=== PATIENT | female | born 1985 | race Caucasian/White ===

== ENCOUNTER 2018-03-30 20:46 | Emergency (ER) | payer OTHER ==
--- NOTE | 2018-03-30 20:56 | PDOC ---
Attending Attestation - HPI HPI: 03/30/18 22:17 The patient is a 39 weeks 32 year old female , with no significant PMH, who presents to the emergency department with 3 days of bilateral hand swelling. The patient denies any recent injuries or traumas. Denies any pain. The patient states she has experienced intermittent bilateral lower extremity swelling in previous pregnancies but has not experienced the hand swelling in the past. The patient denies chest pain, shortness of breath, headache and dizziness. Denies fever, chills, nausea, vomit, diarrhea and constipation. Denies dysuria, frequency, urgency and hematuria. Allergies: NKDA Documentation prepared by Angelo Qiu, acting as medical reception for Nano Hopper MD. - Physicial Exam PE: 03/30/18 22:17 GENERAL: Awake, alert, and fully oriented, in no acute distress HEAD: No signs of trauma EYES: PERRLA, EOMI, sclera anicteric, conjunctiva clear ENT: Auricles normal inspection, hearing grossly normal, nares patent, oropharynx clear without exudates. Moist mucosa NECK: Normal ROM, supple, no lymphadenopathy, JVD, or masses LUNGS: Breath sounds equal, clear to auscultation bilaterally. No wheezes, and no crackles HEART: Regular rate and rhythm, normal S1 and S2, no murmurs, rubs or gallops ABDOMEN: Gravid but non tender. Soft, normoactive bowel sounds. No guarding, no rebound. EXTREMITIES: (+) Mild swelling of both hands. No pain with flexion or extension. No pitting edema. Normal range of motion. No clubbing or cyanosis. No cords, erythema, or tenderness NEUROLOGICAL: Cranial nerves II through XII grossly intact. Normal speech, normal gait SKIN: Warm, Dry, normal turgor, no rashes or lesions noted. <Angelo Qiu - Last Filed: 03/30/18 22:20> - Resident Resident Name: David Frances - ED Attending Attestation I have performed the following: I have examined & evaluated the patient, The case was reviewed & discussed with the resident, I agree w/resident's findings & plan - Medical Decision Making 03/30/18 22:01 Pt is 39 weeks with bilateral hand swelling; she has had this for a couple days. The swelling would go away on prior days. Today she has persistence of the hand swelling. 03/30/18 22:54 Pt's labs are normal. Duplex sono of her arms bilaterally are pending. 03/30/18 22:56 Pt will be sent upstairs to L+D for monitoring prior to discharge. 03/31/18 04:38 Sono shows no DVTs <Nano Hopper - Last Filed: 03/31/18 04:38>
--- NOTE | 2018-03-30 21:15 | PDOC ---
History of Present Illness - General Chief Complaint: Edema Stated Complaint: 39 WEEKS - HAND SWELLING Time Seen by Provider: 03/30/18 20:55 - History of Present Illness Initial Comments: The patient is a 32F at 39 weeks who presents for evaluation of three days of b/l hand swelling. The patient reports that the first two days she awoke with mild b/l hand swelling which resolved throughout the day. Today the swelling has persisted. She noted that today her hands were on average less elevated than they may have the over the last two days. She denies recent trauma /injury to her hands. Denies changes in sensation or pain. Reports intermittent BLE swelling throughout all of her pregnancies but had not has hand swelling during her previous pregnancies. Denies fevers/chills, recent illness, BRAND, chest pain, SOB, abdominal pain, dysuria, vaginal bleeding or discharge, or N/V/C/D 03/30/18 21:10 Past History - Past Medical History Allergies/Adverse Reactions: Allergies Allergy/AdvReac Type Severity Reaction Status Date / Time No Known Drug Allergies Allergy Verified 03/30/18 20:56 tomato AdvReac Verified 03/30/18 20:56 Home Medications: Ambulatory Orders Acetaminophen [Tylenol] 650 mg PO PRN 03/30/18 Ferrous Sulfate 325 mg PO BID 03/31/18 Vitamins (Sjr) - 1 tab PO DAILY 03/31/18 Asthma: No Cancer: No Cardiac Disorders: No Diabetes: No HTN: No Seizures: No Thyroid Disease: No - Suicide/Smoking/Psychosocial Hx Smoking History: Never smoked Have you smoked in the past 12 months: No Number of Cigarettes Smoked Daily: 0 Cigars Per Day: 0 Information on smoking cessation initiated: No Hx Alcohol Use: No Drug/Substance Use Hx: No Hx Substance Use Treatment: No Review of Systems - Review of Systems Able to Perform ROS?: Yes Comments:: GENERAL/CONSTITUTIONAL: No fever or chills. No weakness HEAD, EYES, EARS, NOSE AND THROAT: No change in vision. No ear pain or discharge. No sore throat CARDIOVASCULAR: No chest pain or shortness of breath RESPIRATORY: Denies cough, hemoptysis GASTROINTESTINAL: No nausea, vomiting, diarrhea or constipation GENITOURINARY: No dysuria, or change in urination MUSCULOSKELETAL: No joint or muscle pain. No neck or back pain SKIN: No rash NEUROLOGIC: No headache, vertigo, loss of consciousness, or change in strength/ sensation ENDOCRINE: No increased thirst. No abnormal weight change HEMATOLOGIC/LYMPHATIC: No anemia, easy bleeding, or history of blood clots ALLERGIC/IMMUNOLOGIC: No hives or skin allergy 03/30/18 21:13 Is the patient limited Egyptian proficient: No *Physical Exam - Vital Signs Last Vital Signs Temp Pulse Resp BP Pulse Ox 97.9 F 118 H 18 114/79 99 03/30/18 20:56 03/30/18 20:56 03/30/18 20:56 03/30/18 20:56 03/30/18 20:56 - Physical Exam Comments: GENERAL: Awake, alert, and fully oriented, in no acute distress HEAD: No signs of trauma, normocephalic, atraumatic EYES: PERRLA, EOMI, sclera anicteric, conjunctiva clear ENT: Hearing grossly normal, nares patent, oropharynx clear without exudates. Moist mucosa LUNGS: No distress, speaks full sentences, clear to auscultation bilaterally HEART: Regular rate and rhythm, normal S1 and S2, no murmurs appreciated, peripheral pulses normal and equal bilaterally ABDOMEN: Gravid, nontender, normoactive bowel sounds. No guarding, no rebound EXTREMITIES : Normal inspection, Normal range of motion, no edema. No clubbing or cyanosis NEUROLOGICAL: Cranial nerves II through XII grossly intact. Normal speech, normal gait, no focal sensorimotor deficits SKIN: Warm, Dry, normal turgor, no rashes or lesions noted RUE: Inspection: Mild diffuse swelling of the palm and digits w/o pitting edema. No erythema or ecchymosis. No tenderness or open wounds. Compartments soft and compressible, pain within proportion, no pain to passive stretch Sensation: sensation present to light touch m/r/u n Motor: intact AIN/PIN/Ulnar in hand; 5/5 Wrist flex/ext; 5/5 Elbow flex/ext; 5/ 5 Shoulder ABd,Flex Vascular: 2+ radial pulse palpated, BCR all fingers <2 sec. LUE: Inspection: Mild diffuse swelling of the palm and digits w/o pitting edema. No erythema or ecchymosis. No tenderness or open wounds. Compartments soft and compressible, pain within proportion, no pain to passive stretch Sensation: sensation present to light touch m/r/u n Motor: intact AIN/PIN/Ulnar in hand; 5/5 Wrist flex/ext; 5/5 Elbow flex/ext; 5/ 5 Shoulder ABd,Flex Vascular: 2+ radial pulse palpated, BCR all fingers <2 sec. 03/30/18 21:14 Moderate Sedation - Procedure Monitoring Vital Signs: Procedure Monitoring Vital Signs Temperature 97.9 F 03/30/18 20:56 Pulse Rate 118 H 03/30/18 20:56 Respiratory Rate 18 03/30/18 20:56 Blood Pressure 114/79 03/30/18 20:56 O2 Sat by Pulse Oximetry (%) 99 03/30/18 20:56 ED Treatment Course - LABORATORY CBC & Chemistry Diagram: 03/30/18 22:10 03/30/18 22:10 Medical Decision Making - Medical Decision Making The patient is a 32F at 39 weeks who presents for evaluation Ddx: physiologic swelling, considered DVT, infection, trauma/injury ED Course CMP, CBC BUE doppler 03/30/18 22:00 No leukocytosis Plt wnl No anemia Lytes wnl Alk P mildly elevated to 122 LFTs wnl No SHELTON S/p US, pending read 03/30/18 22:49 US w/o evidence of DVT Likely physiological swelling Plan for D/C w/ OB check, and pt to call for OB f/u Sunday Discharge instructions and return precautions given Patient in agreement and verbalized understanding Dispo: home *DC/Admit/Observation/Transfer Diagnosis at time of Disposition: Hand swelling Qualifiers: Laterality: bilateral Qualified Code(s): M79.89 - Other specified soft tissue disorders - Discharge Dispostion Disposition: HOME Condition at time of disposition: Stable Decision to Admit order: No - Referrals - Patient Instructions - Post Discharge Activity
[2018-03-30 22:17] LABS: HEMATOCRIT 32.2 % (32.4-45.2); HEMOGLOBIN 11.3 GM/dL (10.7-15.3); MCH 31.1 pg (25.7-33.7); MCHC 35.1 g/dl (32.0-36.0); MEAN CELL VOLUME 88.6 fl (80-96); MEAN PLT VOLUME 8.4 fl (7.5-11.1); PLATELET COUNT 220 K/MM3 (134-434); RBC 3.63 M/mm3 (3.60-5.2); RDW 15.6 % (11.6-15.6); WHITE BLOOD COUNT 6.8 K/mm3 (4.0-10.0)
[2018-03-30 22:44] LABS: ALBUMIN 2.8 g/dl (3.4-5.0); ALK PHOS 122 U/L (45-117); ANION GAP 7 MMOL/L (8-16); BILIRUBIN,TOTAL 0.6 mg/dL (0.2-1); BLOOD UREA NITROGEN 9 mg/dL (7-18); CALCIUM 8.3 mg/dL (8.5-10.1); CHLORIDE 106 mmol/L (98-107); CO2 22 mmol/L (21-32); CREATININE 0.5 mg/dL (0.55-1.3); GLUCOSE,RANDOM 103 mg/dL (74-106); POTASSIUM 3.8 mmol/L (3.5-5.1); SGOT/AST 16 U/L (15-37); SGPT/ALT 16 U/L (13-61); SODIUM 136 mmol/L (136-145); TOT PROT 6.3 g/dl (6.4-8.2)
[2018-03-31] MEDS ORDERED: SODIUM PHOSPHATE/NA BIPHOS 133 ML ENEMA PR ONE (01:55)
[2018-03-31] MEDS ORDERED: DEXTROSE 5%-LACTATED RINGERS 1,000 ML IV SCH (02:00)
--- NOTE | 2018-03-31 02:04 | HP ---
Past Medical History - Primary Care Physician PCP:: Michelle Mitchell - Admission Chief Complaint: 32 yrs , 39.3 weeks iup admitted in labor onset since mid night History of Present Illness: pnc at 2, [facility] wt gain 29 lbs 10/22/17 Panel : O Pos, Hbsag neg, Rpr nr, Rubella non immune, Vaicella immune, Hiv neg, Lead neg, Pap Nilm, hpc gc/ct neg 12/26/17 1 hr Gtt 88, rpr nr, Quantiferon neg 03/05/18 h/h 10.131.1, plt 228, GBS neg, gc/ct neg genetic counselling was done, Materna T-21 neg, growth sono done by [facility] ,anatomy sono were normal sono rports not available 11/16/17 sono 20.1 weeks , corrected EDC assigned 04/04/18 History Source: Patient, Medical Record Limitations to Obtaining History: No Limitations - Past Medical History 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 Weeks Gestation by Dates: 37.0 ...EDC by Dates: 04/20/18 (mistaken dates ) ...EDC by Sono: 04/04/18 (corrected EDC by sono ) Heme/Onc: Yes: Anemia (Rx po iron , pnv) Infectious Disease: No: AIDS, HIV, STD's, Tuberculosis Psych: No: Addictions, Anxiety, Bipolar, Depression, Panic, Psychosis, Schizophrenia, Other - Past Surgical History Past Surgical History: Yes: None Hx Myomectomy: No Hx Transabdominal Cerclage: No - Smoking History Smoking history: Never smoked Have you smoked in the past 12 months: No Aproximately how many cigarettes per day: 0 - Alcohol/Substance Use Hx Alcohol Use: No History of Substance Use: reports: None Home Medications - Allergies Allergies/Adverse Reactions: Allergies Allergy/AdvReac Type Severity Reaction Status Date / Time No Known Drug Allergies Allergy Verified 03/30/18 20:56 tomato AdvReac Verified 03/30/18 20:56 - Home Medications Home Medications: Ambulatory Orders Acetaminophen [Tylenol] 650 mg PO PRN 03/30/18 Ferrous Sulfate 325 mg PO BID 03/31/18 Vitamins (Sjr) - 1 tab PO DAILY 03/31/18 Physical Exam - Maternity Vital Signs: Vital Signs Temperature 98.2 F 03/30/18 23:42 Pulse Rate 80 03/30/18 23:42 Respiratory Rate 18 03/30/18 23:42 Blood Pressure 106/63 03/30/18 23:42 O2 Sat by Pulse Oximetry (%) 100 03/30/18 23:24 Selected Entries 03/30/18 20:56 Weight 179 lb Constitutional: Yes: Well Nourished, No Distress Eyes: Yes: WNL HENT: Yes: WNL, Normocephalic Neck: Yes: WNL Cardiovascular: Yes: WNL, Regular Rate and Rhythm Lungs: Clear to auscultation Breast(s): Yes: WNL - Abdominal Exam/OB Fundal Height: 38 Number of Fetuses: Single Presentation: Vertex Contractions: Yes Regularity: Irregular (3-5 min) Intensity: Mild Monitor Mode: External Heart Rate (range): 150 Heart Rate Location: [facility] Category: I Accelerations: Uniform Decelerations: None - Vaginal Exam/OB Vaginal Bleediing: No Speculum Exam: No Dilatation (cm): 3-4 Effacement (%): 70 Amniotic Membrane Status: Intact Presentation: Vertex/Position (exam at 1.00 AM) Station: -2 - Physical Exam Musculoskeletal: Yes: WNL Extremities: Yes: WNL. No: Calf Tenderness Edema: LUE: Trace (edema of hand), RUE: Trace (edema of hand ), LLE: 1+, RLE: 1+ Integumentary: Yes: WNL Deep Tendon Reflex Grade: Normal +2 ...Motor Strength: WNL Psychiatric: Yes: WNL, Alert, Oriented - Labs Lab Results: CBC, BMP 03/30/18 22:10 03/30/18 22:10 Laboratory Tests 03/30/18 22:10 AST 16 ALT 16 Laboratory Tests 03/31/18 03/31/18 03/31/18 01:45 01:45 01:45 WBC 6.8 Hgb 12.0 Hct 34.7 Plt Count 226 PT with INR 11.00 INR 0.93 PTT (Actin FS) 30.6 Sodium 137 Potassium 3.9 Chloride 103 Carbon Dioxide 26 BUN 8 Creatinine 0.5 L Random Glucose 83 Calcium 8.6 Blood Type Antibody Screen 03/31/18 01:45 WBC Hgb Hct Plt Count PT with INR INR PTT (Actin FS) Sodium Potassium Chloride Carbon Dioxide BUN Creatinine Random Glucose Calcium Blood Type O POSITIVE Antibody Screen Negative Problem List - Problems (1) with 39 completed weeks gestation Code(s): Z3A.39 - 39 WEEKS GESTATION OF (2) Labor established Code(s): [id number] - Assessment/Plan 32 yrs , 39.3/7 weeks gestation ,GBS neg admitted in labor ( early) Plan may ambulate pitocin augmentation prn epidural labor analgesia trial vaginal delivery 7.30 AM cx 3-4 cm/70 %/ mi/ vx -3/-2 /pelvis adequate UC are irregular 3-7 min , mild . 9.15 am pt declines to continue observation or active management of labor she states she is comfortable , she prefers to go home labor s&s told keep clinic appt keep kick count Discharge the patient
[2018-03-31 02:13] VITALS: BMI 24.7
[2018-03-31 02:19] LABS: BASO % 0.5 % (0-2.0); EOS % 2.1 % (0-4.5); HEMATOCRIT 34.7 % (32.4-45.2); LYMPH % 20.9 % (8-40); MCHC 34.5 g/dl (32.0-36.0); MEAN CELL VOLUME 89.9 fl (80-96); MEAN PLT VOLUME 8.9 fl (7.5-11.1); MONO % 7.9 % (3.8-10.2); NEUT % 68.6 % (42.8-82.8); PLATELET COUNT 226 K/MM3 (134-434); RBC 3.86 M/mm3 (3.60-5.2); RDW 15.7 % (11.6-15.6); WHITE BLOOD COUNT 6.8 K/mm3 (4.0-10.0)
[2018-03-31 02:31] LABS: INR 0.93 (0.83-1.09)
[2018-03-31 02:33] LABS: ACTIVATED PTT 30.6 SECONDS (25.2-36.5)
[2018-03-31 02:38] LABS: ANION GAP 8 MMOL/L (8-16); BLOOD UREA NITROGEN 8 mg/dL (7-18); CALCIUM 8.6 mg/dL (8.5-10.1); CHLORIDE 103 mmol/L (98-107); CO2 26 mmol/L (21-32); CREATININE 0.5 mg/dL (0.55-1.3); GLUCOSE,RANDOM 83 mg/dL (74-106); POTASSIUM 3.9 mmol/L (3.5-5.1); SODIUM 137 mmol/L (136-145)
[2018-03-31 09:30] VITALS: BP 111/61; PULSE 79; TEMP 98
== END 2018-03-31 09:42 | disposition home or self-care (01) ==
LOC: JER 20:46 → UNDOADMIN 03-31 01:00 → JLDR 03-31 01:00 → JER 03-31 09:42
PROC: 3E033GC Introduction of Other Therapeutic Substance into Peripheral Vein, Percutaneous Approach (ICD-10-PCS; principal; 2018-03-30)
DX: M79.89 Other specified soft tissue disorders (principal)
CPT/HCPCS: 36415; 80048; 80053; 85025; 85027; 85610; 85730; 86593; 86850; 86900; 86901; 93970-TC; 99284-25

== ENCOUNTER 2018-04-01 05:45 | Inpatient (IN) | payer OTHER ==
[2018-04-01] MEDS ORDERED: ELECTROLYTE-148 SOLN 500 ML IV ONE (06:53)
[2018-04-01] MEDS ORDERED: ELECTROLYTE-148 SOLN 1,000 ML IV SCH (07:00)
--- NOTE | 2018-04-01 07:07 | HP ---
Past Medical History - Primary Care Physician PCP:: Michelle Mitchell - Admission Chief Complaint: 32 yrs , 39.4/7 weeks admitted in labor, onset LP since 4.30 AM . pt was admitted 03/31/18 , she left because uc had becvome infrequent& she did not want any intervention . History of Present Illness: pnc at [address] [place] [address] . see details of chart review on 03/31/18 admission. 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 Weeks Gestation by Dates: 37.2 (mistaken dates ) ...EDC by Dates: 04/20/18 ...EDC by Sono: 04/04/18 Heme/Onc: Yes: Anemia (Rx po iron , pnv) Infectious Disease: No: AIDS, HIV, STD's, Tuberculosis Psych: No: Addictions, Anxiety, Bipolar, Depression, Panic, Psychosis, Schizophrenia, Other Endocrine: No: Antrim's Disease, Yasemin's Disease, Diabetes Insipidus, Diabetes Mellitus, Hyperparathyroidism, Hyperthyroidism, Hypothyroidism, Osteopenia, SIADH, Other - Past Surgical History Past Surgical History: Yes: None Hx Myomectomy: No Hx Transabdominal Cerclage: No - Smoking History Smoking history: Never smoked Have you smoked in the past 12 months: No Aproximately how many cigarettes per day: 0 - Alcohol/Substance Use Hx Alcohol Use: No History of Substance Use: reports: None Home Medications - Allergies Allergies/Adverse Reactions: Allergies Allergy/AdvReac Type Severity Reaction Status Date / Time No Known Drug Allergies Allergy Verified 12/15/18 20:56 tomato AdvReac Verified 03/30/18 20:56 - Home Medications Home Medications: Ambulatory Orders Acetaminophen [Tylenol] 650 mg PO PRN 03/30/18 Ferrous Sulfate 325 mg PO BID 03/31/18 Vitamins (Sjr) - 1 tab PO DAILY 03/31/18 Physical Exam - Maternity Vital Signs: Selected Entries 04/01/18 07:00 Temperature 98.1 F Pulse Rate 80 Blood Pressure 106/67 Constitutional: Yes: Well Nourished Eyes: Yes: WNL HENT: Yes: WNL, Normocephalic Neck: Yes: WNL Cardiovascular: Yes: WNL, Regular Rate and Rhythm Lungs: Clear to auscultation Breast(s): Yes: WNL - Abdominal Exam/OB Fundal Height: 38 Number of Fetuses: Single Presentation: Vertex Contractions: Yes Regularity: Irregular (5-7 min) Intensity: Moderate Monitor Mode: External Heart Rate (range): 150 Heart Rate Location: [facility] Category: I Accelerations: Uniform Decelerations: None - Vaginal Exam/OB Vaginal Bleediing: Yes, Bloody Show Speculum Exam: No Dilatation (cm): 6-7 Effacement (%): 80 Amniotic Membrane Status: Intact Presentation: Vertex/Position (exam at 6.40 AM) Station: -2 (-2/-1) - Physical Exam Musculoskeletal: Yes: WNL Extremities: Yes: WNL. No: Calf Tenderness Edema: Yes Edema: LUE: 1+ (hand swelling ), RUE: 1+ (hand swelling ), LLE: 1+, RLE: 1+ Integumentary: Yes: WNL Deep Tendon Reflex Grade: Normal +2 ...Motor Strength: WNL Psychiatric: Yes: WNL, Alert, Oriented - Labs Lab Results: Laboratory Tests 03/30/18 03/31/18 03/31/18 22:10 01:45 01:45 WBC 6.8 Hgb 12.0 Hct 34.7 Plt Count 226 Neutrophils % 68.6 Lymphocytes % 20.9 D Monocytes % 7.9 Eosinophils % 2.1 Basophils % 0.5 PT with INR 11.00 INR 0.93 Sodium Potassium Chloride Carbon Dioxide BUN Creatinine Random Glucose AST 16 ALT 16 RPR Titer 03/31/18 03/31/18 01:45 01:45 WBC Hgb Hct Plt Count Neutrophils % Lymphocytes % Monocytes % Eosinophils % Basophils % PT with INR INR Sodium 137 Potassium 3.9 Chloride 103 Carbon Dioxide 26 BUN 8 Creatinine 0.5 L Random Glucose 83 AST ALT RPR Titer Nonreactive Problem List - Problems (1) 39 weeks gestation of Code(s): Z3A.39 - 39 WEEKS GESTATION OF (2) Labor established Code(s): [id number] - Assessment/Plan 32 yrs , 39.4/7 weeks , gbs neg , in labor Plan pt requests epidural labor analgesia trial vaginal delivery
[2018-04-01 07:25] VITALS: BMI 21.8
[2018-04-01] MEDS ORDERED: NALOXONE HCL 0.4 MG/ML VIAL IVPUSH PRN (07:39)
[2018-04-01] MEDS ORDERED: LIDO 2%/EPI 1:200000 PRESRVFRE (20 ML SDVIAL) ONE (07:40)
[2018-04-01] MEDS ORDERED: BUPIVACAINE HCL/PF 0.25% (2.5MG/ML) 10 ML VIAL ONE (07:40)
[2018-04-01] MEDS ORDERED: FENTANYL/BUPIVACAINE/NS/PF - PCEA - 50 ML DISP.SYRIN EP ONE (07:43)
[2018-04-01] MEDS ORDERED: FENTANYL/BUPIVACAINE/NS/PF - PCEA - 50 ML DISP.SYRIN EP SCH (07:45)
--- NOTE | 2018-04-01 08:51 | PN ---
Progress Note, Labor Vaginal Exam #1 Labor Exam Date: 04/01/18 Labor Exam Time: 08:40 Heart Rate (range): 140-150 Dilatation: 7-8 Amniotic Membrane Status: Ruptured (AROM scanty , blood tinged) Presentation: Vertex/Position Station: -2 (-2/-1) Remarks: fhr cat-1 uc 7-10 min irregular 8.00Am epidural given plan pItocin augmentation Selected Entries 04/01/18 08:30 Pulse Rate 77 Respiratory 20 Rate Blood Pressure 97/54 L O2 Sat by Pulse 77 L Oximetry (%) Vaginal Exam #2 Labor Exam Date: 04/01/18 Labor Exam Time: 11:30 Heart Rate (range): 130-110 Dilatation: 10 Effacement (%): 100 Amniotic Membrane Status: Ruptured Presentation: Vertex/Position Station: +2 Remarks: fhr cat-1 uc q2 min pt pushing
[2018-04-01] MEDS ORDERED: OXYTOCIN 20 UNITS in 0.9% NS 20 UNIT/1,000 ML INFUS.BAG IV ONE (08:57)
[2018-04-01] MEDS ORDERED: LIDOCAINE HCL 1% PRESERVATIVE FREE - 30ML VIAL ONE (08:58)
[2018-04-01] MEDS ORDERED: OXYTOCIN 30 UNITS in 0.9% NS 30 UNIT/500 ML INFUS.BAG IVPB SCH (09:00)
--- NOTE | 2018-04-01 12:01 | PN ---
Delivery - Delivery Vaginal Delivery: No Problems, Spontaneous (baby delievered in MARLON position, cord around neck x1 tight , was clammped & cut .immediate oral & nasal suction was done . both shoulders delievered without difficulty . 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
[2018-04-01] MEDS ORDERED: WITCH HAZEL 50% (TUCKS) 40 PAD/JAR PAD TP PRN (12:02)
[2018-04-01] MEDS ORDERED: METHYLERGONOVINE MALEATE 0.2 MG/1 ML AMP IM PRN (12:02)
[2018-04-01] MEDS ORDERED: oxyCODONE HCL 5 MG TABLET PO PRN (12:02)
[2018-04-01] MEDS ORDERED: BISACODYL 10 MG SUPP.RECT RC PRN (12:02)
[2018-04-01] MEDS ORDERED: BENZOCAINE 20% 57 GM BOTTLE TP PRN (12:02)
[2018-04-01] MEDS ORDERED: BENZOCAINE 28 GM HEMORRHOIDAL OINTMENT TP PRN (12:02)
[2018-04-01] MEDS ORDERED: OXYTOCIN 20 UNITS in 0.9% NS 20 UNIT/1,000 ML INFUS.BAG IV SCH (12:15)
[2018-04-01] MEDS: ACETAMINOPHEN 325 MG TABLET (FP) PO PRN ×2 (14:23→21:37)
[2018-04-01] MEDS: IBUPROFEN 600 MG TABLET (FP) PO PRN ×2 (14:24→21:36)
[2018-04-01] MEDS: FERROUS SO4 325 MG TABLET (FP) PO SCH (17:37)
[2018-04-02 07:24] LABS: BASO % 0.6 % (0-2.0); EOS % 1.6 % (0-4.5); HEMATOCRIT 32.4 % (32.4-45.2); HEMOGLOBIN 10.5 GM/dL (10.7-15.3); LYMPH % 17.4 % (8-40); MCH 29.5 pg (25.7-33.7); MCHC 32.5 g/dl (32.0-36.0); MEAN CELL VOLUME 90.8 fl (80-96); MEAN PLT VOLUME 8.7 fl (7.5-11.1); MONO % 6.9 % (3.8-10.2); NEUT % 73.5 % (42.8-82.8); PLATELET COUNT 202 K/MM3 (134-434); RBC 3.56 M/mm3 (3.60-5.2); RDW 15.7 % (11.6-15.6); WHITE BLOOD COUNT 8.1 K/mm3 (4.0-10.0)
[2018-04-02] MEDS: FERROUS SO4 325 MG TABLET (FP) PO SCH ×2 (08:28→17:06)
[2018-04-02] MEDS: PRENATAL VITAMINS W/ FOLIC ACID TABLET (FP) PO SCH (09:46)
--- NOTE | 2018-04-02 10:31 | PN ---
Post Progress Note - Subjective Subjective: 32yo Para 3 status post vaginal delivery, seen and evaluated. Doing well. Post Day: 1 Type of Delivery: Vital Signs: Vital Signs Temperature 98.1 F 04/02/18 09:00 Pulse Rate 83 04/02/18 09:00 Respiratory Rate 20 04/02/18 09:00 Blood Pressure 107/63 04/02/18 09:00 O2 Sat by Pulse Oximetry (%) 100 04/01/18 13:00 Breast Exam: Yes: Soft Uterus: Yes: Fundus Firm Abdomen/GI: Yes: Abdomen soft, Tolerating PO Lochia: Yes: Rubra Lochia, amount: Moderate Extremities: Yes: Calves non-tender Activity: Ambulating - Labs Labs: CBC WBC 8.1 K/mm3 (4.0-10.0) 04/02/18 06:45 RBC 3.56 M/mm3 (3.60-5.2) L 04/02/18 06:45 Hgb 10.5 GM/dL (10.7-15.3) L 04/02/18 06:45 Hct 32.4 % (32.4-45.2) 04/02/18 06:45 MCV 90.8 fl (80-96) 04/02/18 06:45 MCH 29.5 pg (25.7-33.7) 04/02/18 06:45 MCHC 32.5 g/dl (32.0-36.0) 04/02/18 06:45 RDW 15.7 % (11.6-15.6) H 04/02/18 06:45 Plt Count 202 K/MM3 (134-434) 04/02/18 06:45 MPV 8.7 fl (7.5-11.1) 04/02/18 06:45 Absolute Neuts (auto) 6.0 K/mm3 (1.5-8.0) 04/02/18 06:45 Neutrophils % 73.5 % (42.8-82.8) 04/02/18 06:45 Lymphocytes % 17.4 % (8-40) 04/02/18 06:45 Monocytes % 6.9 % (3.8-10.2) 04/02/18 06:45 Eosinophils % 1.6 % (0-4.5) 04/02/18 06:45 Basophils % 0.6 % (0-2.0) 04/02/18 06:45 Nucleated RBC % 0 % (0-0) 04/02/18 06:45 Problem List - Problems (1) Status post vaginal delivery Code(s): POL6686 - Assessment/Plan Status post vaginal delivery Stable Continue routine care
[2018-04-02] MEDS ORDERED: SENNOSIDES/DOCUSATE COMBO (SENNA PLUS) TABLET (UD) PO PRN (22:00)
[2018-04-02 23:45] VITALS: TEMP 98.3
[2018-04-03] MEDS: FERROUS SO4 325 MG TABLET (FP) PO SCH (08:15)
[2018-04-03 08:50] VITALS: BP 99/54; PULSE 70
[2018-04-03] MEDS: PRENATAL VITAMINS W/ FOLIC ACID TABLET (FP) PO SCH (09:16)
--- NOTE | 2018-04-03 09:26 | DS ---
Physical Exam-SENIOR SYSTEMS ADMINISTRATOR Vital Signs: Vital Signs Temperature 98.3 F 04/03/18 08:42 Pulse Rate 70 04/03/18 08:42 Respiratory Rate 20 04/03/18 08:42 Blood Pressure 99/54 L 04/03/18 08:42 O2 Sat by Pulse Oximetry (%) 100 04/01/18 13:00 Constitutional: Yes: Well Nourished, No Distress Eyes: Yes: WNL HENT: Yes: WNL, Normocephalic Neck: Yes: WNL Cardiovascular: Yes: WNL, Regular Rate and Rhythm Respiratory: Yes: WNL, CTA Bilaterally Gastrointestinal: Yes: WNL ...Rectal Exam: Yes: WNL Renal/: Yes: WNL ....Post : Yes: Uterus firm, Moderate lochia rubra (perineum intact) Breast(s): Yes: WNL (bf, breast not engorged) Musculoskeletal: Yes: WNL Extremities: Yes: WNL. No: Calf Tenderness Edema: LLE: Trace, RLE: Trace Integumentary: Yes: WNL, Tattoos Neurological: Yes: WNL, Alert, Oriented ...Motor Strength: WNL Psychiatric: Yes: WNL, Alert, Oriented Labs: CBC, BMP 04/02/18 06:45 Delivery - Delivery Vaginal Delivery: No Problems, Spontaneous (baby delievered in MARLON position, cord around neck x1 tight , was clammped & cut .immediate oral & nasal suction was done . both shoulders delievered without difficulty . 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 pt discussed options of contraception of depo provera , iud & implant in details with risk, benefits, & alternatives . pp course uneventful discharge today Discharge Summary Reason For Visit: LABOR ADMIT Current Active Problems Status post vaginal delivery (Acute) Condition: Stable - Instructions Diet, Activity, Other Instructions: Post Instructions DIET: Continue good diet high in protein, calcium, and iron rich foods. Drink at least eight (8) glasses of water daily in addition to other fluids. ___ Regular diet MEDICATIONS: Continue vitamins and iron as previously directed. Motrin and Tylenol may be taken for minor discomfort. ACTIVITY: Mild to moderate exercise may be started in two (2) weeks. Take frequent rest periods. Resume normal activity after six (6) week check up. WOUND CARE OF OPERATIVE SITE: Continue use of perineal bottle until vaginal discharge stops. Keep area clean. Shower daily. Keep abdominal wound dry. Report any drainage or redness to physician. Tub baths, tampons and douches are not permitted for [address] Breast feeding & or Bottle feeding BREAST CARE: (For those that are not ): If engorgement occurs: Wear tight fitting bra. Take Tylenol or Motrin for pain. Apply cold packs (ice in bags to each breast ) FAMILY PLANNING: There are many control alternatives to pursue and they should be discussed at your first office visit. You may resume sexual activity after your six (6) week check up. (Remember, is not a contraceptive) NEXT PHYSICIAN APPOINTMENT: Be certain to call for a six (6) week appointment, unless otherwise directed. Call Clinic or got to Emergency Dept if you have any of the following: Heavy vaginal bleeding Painful urination Leg pain Unusual odor noted to vaginal bleeding High fever Red streaking noted on breast call [facility] weeks for appointment. [phone] Referrals: Michelle Mitchell MD [Staff Physician] - Disposition: HOME - Home Medications Comprehensive Discharge Medication List: Ambulatory Orders Acetaminophen [Tylenol] 650 mg PO PRN 03/30/18 Ferrous Sulfate 325 mg PO BID 03/31/18 Vitamins (Sjr) - 1 tab PO DAILY 03/31/18 Acetaminophen [Tylenol .Regular Strength -] 650 mg PO Q3H PRN tablet 04/02/18 Ferrous Sulfate [Feosol] 325 mg PO BIDWM ud 04/02/18 Ibuprofen [Motrin -] 200 mg PO Q4H PRN tablet 04/02/18 Vitamins (Sjr) - 1 tab PO DAILY tablet 04/02/18
== END 2018-04-03 13:05 | disposition home or self-care (01) | DRG 560 ==
LOC: JDEL 05:45 → JLDR 06:40 → J3W 13:42
PROVIDERS: ADMIT Obstetrics & Gynecology; ATTEND Obstetrics & Gynecology
PROC: 10E0XZZ Delivery of Products of Conception, External Approach (ICD-10-PCS; principal; 2018-04-01)
DX: O69.1XX0 Labor and delivery complicated by cord around neck, with compression, not applicable or unspecified (principal); Z3A.39 39 weeks gestation of pregnancy; Z37.0 Single live birth
CPT/HCPCS: 36415; 59409; 80048; 80053; 85025; 85027; 85610; 85730; 86593; 86850; 86900; 86901; 93970-TC; 99284-25

== ENCOUNTER 2019-06-19 20:18 | Emergency (ER) | payer OTHER ==
[2019-06-19 20:22] VITALS: BP 125/75; PULSE 95; TEMP 98.3; BMI 20.7
--- NOTE | 2019-06-19 20:22 | PDOC ---
Rapid Medical Evaluation Time Seen by Provider: 06/19/19 20:20 Medical Evaluation: Allergies Allergy/AdvReac Type Severity Reaction Status Date / Time No Known Drug Allergies Allergy Verified 04/01/18 07:34 06/19/19 20:20 I have performed a brief in-person evaluation of this patient. The patient presents with a chief complaint of: cold symptoms x 2-3 weeks, fever today 100.4F. came today because of "[id number]" Pertinent physical exam findings: well appearing, lungs ctab I have ordered the following: nothing The patient will proceed to the ED for further evaluation. Discharge Disposition - Diagnosis URI (upper respiratory infection) - Referrals - Patient Instructions - Post Discharge Activity
--- NOTE | 2019-06-19 21:10 | PDOC ---
History of Present Illness - General Chief Complaint: Cold Symptoms Stated Complaint: COUGH/FEVER Time Seen by Provider: 06/19/19 20:20 History Source: Patient Exam Limitations: Clinical Condition - History of Present Illness Initial Comments: 06/19/19 21:06 Patient with no significant past medical history present with complaint of over 2 weeks history of intermittent cold symptoms with intermittent cough, nasal congestion and runny nose with one episode of fever today of 100.4 F this morning which she took Tylenol 7 hours ago but has not had any more fevers. Denies nausea, vomiting, abdominal pain, sore throat, body aches. Denies any other symptoms Is this a multiple visit Asthma Patient?: No Timing/Duration: other (3 weeks) Past History - Past Medical History Allergies/Adverse Reactions: Allergies Allergy/AdvReac Type Severity Reaction Status Date / Time No Known Drug Allergies Allergy Verified 06/19/19 20:23 Home Medications: Ambulatory Orders Benzonatate [Tessalon Pearls -] 100 mg PO Q8H PRN #21 capsule 06/19/19 Ipratropium [place] 2 spray NS BID PRN #1 spray 06/19/19 Asthma: No Cancer: No Cardiac Disorders: No COPD: No Diabetes: No HTN: No Seizures: No Thyroid Disease: No - Reproductive History Therapeutic (s) & number: No - Immunization History Immunization Up to Date: Yes - Psycho Social/Smoking Cessation Hx Smoking History: Never smoked Have you smoked in the past 12 months: No Number of Cigarettes Smoked Daily: 0 Cigars Per Day: 0 Hx Alcohol Use: No Drug/Substance Use Hx: No Hx Substance Use Treatment: No Review of Systems - Review of Systems Able to Perform ROS?: Yes Is the patient limited Macedonian proficient: No Constitutional: Yes: See HPI, Fever (resolved). No: Chills HEENTM: Yes: Symptoms Reported, See HPI, Nose Congestion. No: Eye Pain, Blurred Vision, Tearing, Recent change in vision, Double Vision, Cataracts, Ear Pain, Ocular Prothesis, Ear Discharge, Nose Pain, Tinnitus, Nose Bleeding, Hearing Loss, Throat Pain, Throat Swelling, Mouth Pain, Dental Problems, Difficulty Swallowing, Mouth Swelling, Other Respiratory: Yes: Symptoms reported, See HPI, Cough (intermittent). No: Orthopnea, Shortness of Breath, SOB with Exertion, SOB at Rest, Stridor, Wheezing, Productive cough, Hemoptysis, Other Cardiac (ROS): No: Symptoms Reported, See HPI, Chest Pain, Edema, Irregular Heart Rate, Lightheadedness, Palpitations, Syncope, Chest Tightness, Other ABD/GI: No: Symptoms Reported, Nausea, Vomiting All Other Systems: Reviewed and Negative *Physical Exam - Vital Signs Last Vital Signs Temp Pulse Resp BP Pulse Ox 98.3 F 95 H 18 125/75 98 06/19/19 20:20 06/19/19 20:20 06/19/19 20:20 06/19/19 20:20 06/19/19 20:20 - Physical Exam 06/19/19 21:08 GENERAL: Well developed, well nourished. Awake and alert. No acute distress. HEENT: Normocephalic, atraumatic. PERRLA, EOMI. No conjunctival pallor. Sclera are non-icteric. Moist mucous membranes. Oropharynx is clear. NECK: Supple. Full ROM. CARDIOVASCULAR: Regular rate and rhythm. No murmurs, rubs, or gallops. Distal pulses are 2+ and symmetric. PULMONARY: No evidence of respiratory distress. Lungs clear to auscultation bilaterally. No wheezing, rales or rhonchi. ABDOMINAL: Soft. Non-tender. Non-distended. No rebound or guarding. No organomegaly. Normoactive bowel sounds. MUSCULOSKELETAL Normal range of motion at all joints. SKIN: Warm and dry. Normal capillary refill. No rashes. No cyanosis NEUROLOGICAL: Alert, awake, appropriate. Gait is normal without ataxia. PSYCHIATRIC: Cooperative. Good eye contact. Appropriate mood General Appearance: Yes: Nourished, Appropriately Dressed. No: Apparent Distress Medical Decision Making - Medical Decision Making 06/19/19 21:07 Patient with no significant past medical history present with complaint of over 2 weeks history of intermittent cold symptoms with intermittent cough, nasal congestion and runny nose with one episode of fever today of 100.4 F this morning which she took Tylenol 7 hours ago but has not had any more fevers. Denies nausea, vomiting, abdominal pain, sore throat, body aches. Denies any other symptoms Clinical exam unremarkable with lungs clear to auscultation bilateral. Patient in no acute distress. Patient afebrile. Patient symptoms likely viral URI and stable for discharge on Tessalon Perles as needed for cough and Atrovent nasal spray for nasal congestion with advised to increase fluid intake with PCP follow-up as needed Discharge - Discharge Information Problems reviewed: Yes Clinical Impression/Diagnosis: URI (upper respiratory infection) Qualifiers: URI type: unspecified viral URI Qualified Code(s): J06.9 - Acute upper respiratory infection, unspecified Condition: Stable Disposition: HOME - Admission No - Additional Discharge Information Prescriptions: Ipratropium [place] 2 spray NS BID PRN #1 spray PRN Reason: nasal congestion Benzonatate [Tessalon Pearls -] 100 mg PO Q8H PRN #21 capsule PRN Reason: Cough - Follow up/Referral - Patient Discharge Instructions Patient Printed Discharge Instructions: DI for Viral Upper Respiratory Infection -- Adult Additional Instructions: Your symptoms is likely from viral infection. Take prescribed medication as prescribed as needed for cough and congestion. Increase fluid intake. Follow- up with primary care as needed - Post Discharge Activity
== END 2019-06-19 21:14 | disposition home or self-care (01) ==
LOC: JERFT 20:18
DX: J06.9 Acute upper respiratory infection, unspecified (principal); B97.89 Other viral agents as the cause of diseases classified elsewhere
CPT/HCPCS: 99281-25

== ENCOUNTER 2020-04-07 18:11 | Emergency (ER) | payer OTHER | END 2020-04-07 19:26 | disposition home or self-care (01) | LOC: JVIRT 18:11 | DX: Z03.818 Encounter for observation for suspected exposure to other biological agents ruled out (principal) | CPT/HCPCS: C9803; G2012-GT; Q3014-GT; U0003 ==

== ENCOUNTER 2022-06-01 05:23 | Day surgery (SDC) | payer OTHER ==
[2022-05-31 12:11] VITALS: BMI 22.3
[2022-06-01 12:15] VITALS: TEMP 97.5
[2022-06-01 14:25] VITALS: BP 103/66; PULSE 65; RESP 16
== END 2022-06-01 13:50 | disposition home or self-care (01) ==
LOC: JASU-ENDO 05:23
PROVIDERS: ATTEND Internal Medicine Gastroenterology
PROC: 0DB98ZX Excision of Duodenum, Via Natural or Artificial Opening Endoscopic, Diagnostic (ICD-10-PCS; 2022-06-01)
PROC: 0DB78ZX Excision of Stomach, Pylorus, Via Natural or Artificial Opening Endoscopic, Diagnostic (ICD-10-PCS; 2022-06-01)
PROC: 0DJD8ZZ Inspection of Lower Intestinal Tract, Via Natural or Artificial Opening Endoscopic (ICD-10-PCS; principal; 2022-06-01 12:30)
DX: K29.50 Unspecified chronic gastritis without bleeding (principal); B96.81 Helicobacter pylori [H. pylori] as the cause of diseases classified elsewhere
CPT/HCPCS: 81025; 88305-TC; 88342-TC

== ENCOUNTER 2023-11-08 03:33 | Inpatient (IN) | payer BC ==
[2023-11-08] MEDS: ELECTROLYTE-148 SOLN 1,000 ML IV SCH (04:30)
[2023-11-08] MEDS ORDERED: AMPICILLIN SODIUM 2 GM VIAL ONE (04:45)
[2023-11-08 04:50] VITALS: BMI 28.0
[2023-11-08] MEDS: AMPICILLIN - 2 GM in SODIUM CHLORIDE 100 ML IVPB ONE (04:50)
[2023-11-08 05:00] LABS: BASO % 0.5 % (0-2.0); EOS % 1.7 % (0-4.5); HEMATOCRIT 34.6 % (32.4-45.2); LYMPH % 22.9 % (8-40); MCH 30.3 pg (25.7-33.7); MCHC 34.6 g/dl (32.0-36.0); MEAN CELL VOLUME 87.7 fl (80-96); MEAN PLT VOLUME 8.8 fl (7.5-11.1); MONO % 8.1 % (3.8-10.2); NEUT % 66.8 % (42.8-82.8); PLATELET COUNT 180 10^3/uL (134-434); RBC 3.95 M/mm3 (3.60-5.2); RDW 14.2 % (11.6-15.6); WHITE BLOOD COUNT 5.2 K/mm3 (4.0-10.0)
[2023-11-08 05:08] LABS: POTASSIUM 3.5 mmol/L (3.5-5.1)
[2023-11-08 05:09] LABS: CALCIUM 8.3 mg/dL (8.5-10.1)
[2023-11-08 05:10] LABS: BLOOD UREA NITROGEN 9.6 mg/dL (7-18)
[2023-11-08 05:13] LABS: CREATININE 0.4 mg/dL (0.55-1.3)
[2023-11-08 05:17] LABS: INR 0.98 (0.83-1.09); PROTHROMBIN TIME (PATIENT) 11.1 SEC (9.7-13.0)
[2023-11-08 05:19] LABS: ACTIVATED PTT 33.1 SECONDS (25.2-36.5)
[2023-11-08] MEDS ORDERED: FENTANYL/BUPIVACAINE/NS/PF - PCEA - 50 ML DISP.SYRIN EP ONE (05:20)
[2023-11-08] MEDS ORDERED: BUPIVACAINE HCL/PF 0.25% (2.5MG/ML) 10 ML VIAL ONE (05:34)
[2023-11-08] MEDS: FENTANYL/BUPIVACAINE/NS/PF - PCEA - 50 ML DISP.SYRIN EP SCH (05:50)
[2023-11-08] MEDS ORDERED: NALOXONE HCL 0.4 MG/ML VIAL IVPUSH PRN (06:06)
[2023-11-08] MEDS ORDERED: AMPICILLIN SODIUM 1 GM VIAL ONE (07:51)
[2023-11-08] MEDS ORDERED: OXYTOCIN 30 UNITS in 0.9% NS 30 UNIT/500 ML INFUS.BAG IVPB ONE (07:52)
[2023-11-08] MEDS ORDERED: OXYTOCIN 20 UNITS in 0.9% NS 20 UNIT/1,000 ML INFUS.BAG IV ONE (07:52)
[2023-11-08] MEDS: AMPICILLIN - 1 GM in SODIUM CHLORIDE 100 ML IVPB SCH (08:00)
[2023-11-08] MEDS: OXYTOCIN 20 UNITS in 0.9% NS 20 UNIT/1,000 ML INFUS.BAG IV SCH (08:40)
[2023-11-08] MEDS ORDERED: oxyCODONE HCL 5 MG TABLET PO PRN (09:12)
[2023-11-08] MEDS ORDERED: BENZOCAINE 28 GM HEMORRHOIDAL OINTMENT TP PRN (09:12)
[2023-11-08] MEDS ORDERED: BISACODYL 10 MG SUPP.RECT RC PRN (09:12)
[2023-11-08] MEDS ORDERED: WITCH HAZEL 50% (TUCKS) 40 PAD/JAR PAD TP PRN (09:12)
[2023-11-08] MEDS ORDERED: METHYLERGONOVINE MALEATE 0.2 MG/1 ML AMP IM PRN (09:12)
[2023-11-08 09:21] LABS: CORD BASE EXCESS -3.2 mmol/L (0-2); CORD HCO3 22.4 mmHg (20-29); CORD PCO2 42.3 mmHg (30-78); CORD pH 7.342 (7.14-7.44)
[2023-11-08 09:32] LABS: CORD BASE EXCESS -10.7 mmol/L (0-2); CORD HCO3 15.8 mmHg (20-29); CORD PCO2 37.8 mmHg (30-78); CORD pH 7.24 (7.14-7.44)
[2023-11-08] MEDS: BENZOCAINE 20% 57 GM BOTTLE TP PRN (17:09)
[2023-11-08] MEDS: IBUPROFEN 600 MG TABLET (FP) PO PRN (17:09)
[2023-11-08] MEDS: ACETAMINOPHEN 325 MG TABLET (FP) PO PRN (20:12)
[2023-11-09 08:31] LABS: BASO % 0.7 % (0-2.0); EOS % 1.4 % (0-4.5); HEMATOCRIT 38.4 % (32.4-45.2); LYMPH % 18.3 % (8-40); MCH 30.7 pg (25.7-33.7); MCHC 33.9 g/dl (32.0-36.0); MEAN CELL VOLUME 90.6 fl (80-96); MEAN PLT VOLUME 8.8 fl (7.5-11.1); MONO % 7.4 % (3.8-10.2); NEUT % 72.2 % (42.8-82.8); PLATELET COUNT 196 10^3/uL (134-434); RBC 4.24 M/mm3 (3.60-5.2)
[2023-11-09 13:18] VITALS: RESP 18
[2023-11-09] MEDS ORDERED: SENNOSIDES/DOCUSATE COMBO (SENNA PLUS) TABLET (UD) PO PRN (22:00)
[2023-11-10] MEDS: LIDOCAINE HCL 5% TOP OINTMENT 50 GM TUBE TP ONE (11:16)
[2023-11-10] MEDS: valACYclovir HCL 500 MG TABLET (FP) PO ONE (11:16)
[2023-11-10 11:26] VITALS: BP 101/62; PULSE 70; TEMP 98.2
== END 2023-11-10 14:25 | disposition home or self-care (01) | DRG 807 ==
LOC: JDEL 03:33 → JLDR 04:10 → J3W 10:50
PROVIDERS: ADMIT Obstetrics & Gynecology; ATTEND Obstetrics & Gynecology
PROC: 10E0XZZ Delivery of Products of Conception, External Approach (ICD-10-PCS; principal; 2023-11-08)
DX: O24.420 Gestational diabetes mellitus in childbirth, diet controlled (principal); O26.893 Other specified pregnancy related conditions, third trimester; R21 Rash and other nonspecific skin eruption; Z3A.38 38 weeks gestation of pregnancy; Z37.0 Single live birth
CPT/HCPCS: 36415; 36600; 59409; 80048; 82803; 85025; 85610; 85730; 86780; 86850; 86900; 86901

== ENCOUNTER 2023-11-22 15:01 | Emergency (ER) | payer BC, OTHER ==
[2023-11-22 15:13] VITALS: BP 99/64; PULSE 77; RESP 16; BMI 25.3
[2023-11-22 16:21] LABS: BASO % 0.9 % (0-2.0); EOS % 3.6 % (0-4.5); HEMATOCRIT 44.5 % (32.4-45.2); HEMOGLOBIN 15.1 GM/dL (10.7-15.3); LYMPH % 28.6 % (8-40); MCH 30.5 pg (25.7-33.7); MCHC 33.8 g/dl (32.0-36.0); MEAN CELL VOLUME 90.3 fl (80-96); MEAN PLT VOLUME 8.8 fl (7.5-11.1); NEUT % 60.9 % (42.8-82.8); PLATELET COUNT 192 10^3/uL (134-434); RBC 4.93 M/mm3 (3.60-5.2); RDW 13.6 % (11.6-15.6)
[2023-11-22 16:34] LABS: POTASSIUM 4.4 mmol/L (3.5-5.1)
[2023-11-22 16:35] LABS: EPI CELLS 7 /uL (0-25.1); HYALINE CASTS 2 /uL (0-3.1); PH,URINE 5.5 (5.0-8.0); URINE APPEARANCE CLEAR; URINE BACTERIA 4 /uL (0-1359); URINE BILIRUBIN NEGATIVE (NEGATIVE); URINE COLOR DK YELLOW; URINE GLUCOSE (UA) NEGATIVE (NEGATIVE); URINE KETONE TRACE (NEGATIVE); URINE LEUK ESTERASE NEGATIVE (NEGATIVE); URINE NITRITE NEGATIVE (NEGATIVE); URINE PROTEIN NEGATIVE (NEGATIVE); URINE RBC 58 /uL (0-23.9); URINE WBC 19 /uL (0-25.8)
[2023-11-22 16:36] LABS: ALBUMIN 3.8 g/dl (3.4-5.0); BLOOD UREA NITROGEN 15.2 mg/dL (7-18); CALCIUM 9.3 mg/dL (8.5-10.1)
[2023-11-22 16:41] LABS: BILIRUBIN,TOTAL 0.5 mg/dL (0.2-1); CREATININE 0.7 mg/dL (0.55-1.3); TOT PROT 7.4 g/dl (6.4-8.2)
[2023-11-22 19:08] VITALS: TEMP 98.5
[2023-11-22] MEDS ORDERED: AMOX TR/POT CLAV 875MG/125MG TABLETS (FP) ONE (19:26)
[2023-11-22] MEDS: AMOX TR/POT CLAV 875MG/125MG TABLETS (FP) PO ONE (19:30)
== END 2023-11-22 19:31 | disposition home or self-care (01) ==
LOC: JERFT 15:01 → JER 15:01 → JERFT 19:31
DX: O73.1 Retained portions of placenta and membranes, without hemorrhage (principal); O91.22 Nonpurulent mastitis associated with the puerperium; N61.0 Mastitis without abscess; O86.4 Pyrexia of unknown origin following delivery; O90.89 Other complications of the puerperium, not elsewhere classified; R10.30 Lower abdominal pain, unspecified; Z20.822 Contact with and (suspected) exposure to COVID-19
CPT/HCPCS: 0241U-QW; 36415; 76856-TC; 80053; 81003; 85025; 87086; 99284-25